=== PATIENT | male | born 1970 | race Caucasian/White ===

== ENCOUNTER 2017-02-13 09:18 | Emergency (ER) | payer OTHER ==
[2017-02-13 09:26] VITALS: BP 156/100; PULSE 88; TEMP 98; BMI 29.7
[2017-02-13] MEDS ORDERED: IBUPROFEN 600 MG TABLET (FP) PO ONE (10:04)
--- NOTE | 2017-02-13 10:04 | PDOC ---
History of Present Illness - General Chief Complaint: Burn Stated Complaint: RT HAND BURN Time Seen by Provider: 02/13/17 09:37 History Source: Patient Exam Limitations: No Limitations - History of Present Illness Initial Comments: 02/13/17 10:23 Patient is a 46-year-old male R hand dominant with no past medical history who presents to the emergency department today after burning his right hand on a deep fryer at work. He works at [employer]. He states that he has kay on the back of his fifth, fourth, and third fingers after touching the back of a deep fryer. He does not believe he got oil on his hand. He states that the pain is a 8 out of 10. He was given a bucket with water at triage which is helping his pain. He has not taken any pain medication. Pt. states he last had a tetanus shot last year. Past History - Past Medical History Allergies/Adverse Reactions: Allergies Allergy/AdvReac Type Severity Reaction Status Date / Time No Known Allergies Allergy Verified 02/13/17 09:23 Home Medications: Ambulatory Orders Methadone [Dolophine -] 90 mg PO DAILY 09/09/13 Amoxicillin/Potassium Clav [Augmentin 875-125 Tablet] 1 each PO BID #20 tablet 01/26/15 Fluticasone Prop 0.05% Nasal [Flonase -] 1 - 2 spray NS BID #1 spray.pump Other medical history: none - Psycho/Social/Smoking Cessation Hx Anxiety: No Suicidal Ideation: No Smoking History: Current every day smoker Have you smoked in the past 12 months: Yes Number of Cigarettes Smoked Daily: 5 Information on smoking cessation initiated: Yes 'Breaking Loose' booklet given: 02/13/17 Hx Alcohol Use: No Drug/Substance Use Hx: No Substance Use Type: None, Prescribed Hx Substance Use Treatment: Yes (4 years ago) Review of Systems - Review of Systems Able to Perform ROS?: Yes Is the patient limited Hebrew proficient: No Constitutional: No: Chills, Fever, Malaise, Weakness Integumentary: Yes: Erythema, Other (burn to R 5th, 4th, 3rd fingers) Neurological: Yes: Tingling. No: Numbness, Paresthesia, Weakness All Other Systems: Reviewed and Negative *Physical Exam - Vital Signs Last Vital Signs Temp Pulse Resp BP Pulse Ox 98.0 F 88 18 156/100 100 02/13/17 09:23 02/13/17 09:23 02/13/17 09:23 02/13/17 09:23 02/13/17 09:23 - Physical Exam General Appearance: Yes: Nourished, Appropriately Dressed, Mild Distress (c/o pain from the hand) Musculoskeletal: negative: Decreased Range of Motion Extremity: positive: Normal Capillary Refill, Normal Range of Motion, Tender ( TTP over burned areas), Other (Radial pulses intact 2+ b/l, neurovascualry intact) Integumentary: positive: Warm, Other (2nd degree partial thickness kay over ventral 5th, 4th, and 3rd fingers. Blisters are clean and intact over the burned area. 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 Blisters are clean and intact. We will continue to let him cool the hands in water. Dressing applied with antibiotic ointment. Given Motrin as needed for pain. We will discharge home at this time and instructed to follow up with his primary care doctor tomorrow. Patient not given any narcotics as he is on methadone. Explained that the kay will heal on their own and he should not pop the blisters as they are protecting the skin underneath. He is comfortable with this discharge plan. Patient understands all discharge instructions and all questions were answered at this time. *DC/Admit/Observation/Transfer Diagnosis at time of Disposition: 2Nd deg burn hand Qualifiers: Encounter type: initial encounter Burn of hand location: multiple fingers excluding thumb Laterality: right Qualified Code(s): T23.231A - Burn of second degree of multiple right fingers (nail), not including thumb, initial encounter - Discharge Dispostion Disposition: HOME Condition at time of disposition: Good Admit: No - Referrals Referrals: Peggy Anand MD [Primary Care Provider] - 2 Days - Patient Instructions Printed Discharge Instructions: How to Take Care of a Burn, DI for Kay Additional Instructions: You burned your hand. The wounds are clean and with closed blisters. Do not pop the blisters, as they are protecting the skin underneath. They may break on their own. You may place your hand in cool water for relief. You may take Ibuprofen as needed for pain. You may take 800mg every 8 hours. Keep the area covered with antibiotic ointment, and wrap your fingers with non stick/non- adherent dressing and tape. Follow up with your primary care doctor within 48 hours to monitor how the fingers are healing. Return to the ED if the pain becomes worse even with medication, you develop fevers, chills, numbness, tingling, or if there are any changes in your symptoms. - Post Discharge Activity Work/School Note: Back to Work
[2017-02-13] MEDS ORDERED: SILVER SULFADIAZINE 1% TOP CREAM 50 GM JAR TP ONE (10:05)
[2017-02-13] MEDS ORDERED: IBUPROFEN 400 MG TABLET (FP) PO ONE (10:10)
[2017-02-13] MEDS ORDERED: BACITRACIN 15 GM TUBE TOPICAL OINTMENT ONE (10:13)
[2017-02-13] MEDS ORDERED: BACITRACIN 15 GM TUBE TOPICAL OINTMENT TP ONE (10:13)
== END 2017-02-13 10:23 | disposition home or self-care (01) ==
LOC: JERFT 09:18
PROC: 2W2FX4Z Dressing of Left Hand using Bandage (ICD-10-PCS; principal; 2017-02-13)
DX: T23.231A Burn of second degree of multiple right fingers (nail), not including thumb, initial encounter (principal); X15.8XXA Contact with other hot household appliances, initial encounter; Y93.G3 Activity, cooking and baking; Y92.511 Restaurant or cafe as the place of occurrence of the external cause; Y99.0 Civilian activity done for income or pay
CPT/HCPCS: 99281-25

== ENCOUNTER 2017-06-18 16:43 | Emergency (ER) | payer OTHER ==
[2017-06-18 16:47] VITALS: BP 141/85; PULSE 90; TEMP 97.8; BMI 29.7
[2017-06-18] MEDS ORDERED: IBUPROFEN 600 MG TABLET (FP) PO ONE ×2 (16:48→17:21)
--- NOTE | 2017-06-18 16:48 | PDOC ---
Rapid Medical Evaluation Chief Complaint: Injury Time Seen by Provider: 06/18/17 16:44 Medical Evaluation: Allergies Allergy/AdvReac Type Severity Reaction Status Date / Time No Known Allergies Allergy Verified 06/18/17 16:45 06/18/17 16:46 I have performed a brief in-person evaluation of this patient. The Patient presents with a chief complaint of pain to left knee x 2 days Patient states hit knee on a fryer at work. Complaining of pain with weight bearing since then. Has knee brace in place Pertinent physical exam findings are: NAD unlabored breathing non tender with palpation over patella limping I have ordered the following: xray, analgesia The patient will proceed to the ED for further evaluation.
--- NOTE | 2017-06-18 18:00 | PDOC ---
History of Present Illness - General Chief Complaint: Injury Stated Complaint: LT KNEE INJURY Time Seen by Provider: 06/18/17 16:44 History Source: Patient Exam Limitations: No Limitations - History of Present Illness Initial Comments: 06/18/17 17:59 47 yr male injured left knee last week after banging into a piece of metal. Pt has continued pain to the inside of his left knee. Pt has no sign of trauma noted. Pt has been using a knee brace and biofreeze. Occurred: reports: last week Severity: Yes: mild Lower Extremity Pain Location: left: knee Method of Injury: Yes: direct blow Past History - Past Medical History Allergies/Adverse Reactions: Allergies Allergy/AdvReac Type Severity Reaction Status Date / Time No Known Allergies Allergy Verified 06/18/17 16:45 Home Medications: Ambulatory Orders NK [No Known Home Medication] 06/18/17 COPD: No Other medical history: none - Suicide/Smoking/Psychosocial Hx Smoking History: Current every day smoker Have you smoked in the past 12 months: Yes Number of Cigarettes Smoked Daily: 5 Information on smoking cessation initiated: Yes 'Breaking Loose' booklet given: 06/18/17 Hx Alcohol Use: No Drug/Substance Use Hx: No Substance Use Type: None, Prescribed Hx Substance Use Treatment: Yes (4 years ago) Review of Systems - Review of Systems Able to Perform ROS?: Yes Is the patient limited Uruguayan proficient: No Constitutional: No: Symptoms Reported HEENTM: No: Symptoms Reported Respiratory: No: Symptoms reported Cardiac (ROS): No: Symptoms Reported ABD/GI: No: Symptoms Reported : No: Symptoms Reported Musculoskeletal: Yes: See HPI Integumentary: No: Symptoms Reported Neurological: No: Symptoms reported *Physical Exam - Vital Signs Last Vital Signs Temp Pulse Resp BP Pulse Ox 97.8 F 90 18 141/85 100 06/18/17 16:45 06/18/17 16:45 06/18/17 16:45 06/18/17 16:45 06/18/17 16:45 - Physical Exam General Appearance: Yes: Nourished, Appropriately Dressed HEENT: positive: EOMI, SVEN Musculoskeletal: positive: Normal Inspection Extremity: positive: Normal Capillary Refill, Tender (medial left knee soft tissue, no bony tenderness, FROM of the knee nocalf pain or tenderness) Integumentary: positive: Normal Color, Dry, Warm Neurologic: positive: Fully Oriented, Alert, Normal Mood/Affect, Normal Response , Motor Strength 5/5 Procedures - Splinting Pre-Made Type: knee immobilizer ED Treatment Course - Medications Given in the ED: ED Medications Discontinued Medications Generic Name Dose Route Start Last Admin Trade Name Darin PRN Reason Stop Dose Admin Ibuprofen 600 mg 06/18/17 16:48 06/18/17 17:41 Motrin - PO 06/18/17 16:49 600 mg ONCE ONE Administration Medical Decision Making - Medical Decision Making 06/18/17 18:01 cc: left knee injury last week at work pt is ambulatory has FROM of the knee no swelling or deformity xray ordered from triage/RME. ibuprofen given in RME 06/18/17 18:05 xray is negative I have given the pt a knee immobilizer pt is requesting a cortisone injection, I have explained that an orthopedist needs to follow the pt and that they should be seen this week. pt and his family understand the plan of care, all questions asked and answered. *DC/Admit/Observation/Transfer Diagnosis at time of Disposition: Contusion, knee Qualifiers: Encounter type: initial encounter Laterality: left Qualified Code(s): S80.02XA - Contusion of left knee, initial encounter - Discharge Dispostion Disposition: HOME Condition at time of disposition: Good - Referrals Referrals: Nick Ramsey MD [Staff Physician] - Luis Fernando Ball MD [Staff Physician] - - Patient Instructions Additional Instructions: follow with the orthopedist this week call office or for follow up use the splint while awake remove to sleep and bathe take ibuprofen 600mg every 6hrs for pain apply frequent warm heat/warm compresses to the area of pain - Post Discharge Activity
== END 2017-06-18 18:08 | disposition home or self-care (01) ==
LOC: JERFT 16:43
DX: S80.02XA Contusion of left knee, initial encounter (principal); W22.8XXA Striking against or struck by other objects, initial encounter; Y93.89 Activity, other specified; Y92.511 Restaurant or cafe as the place of occurrence of the external cause; Y99.0 Civilian activity done for income or pay
CPT/HCPCS: 73562-TC-LT; 99281-25

== ENCOUNTER 2018-10-04 13:14 | Emergency (ER) | payer OTHER ==
[2018-10-04] MEDS ORDERED: ONDANSETRON 4 MG/2 ML VIAL IVPUSH ONE (13:21)
[2018-10-04] MEDS ORDERED: FAMOTIDINE 20 MG/50 ML IVPB 20 MG/50 ML MG IVPB ONE ×2 (13:21→14:23)
[2018-10-04 13:23] VITALS: BP 117/80; PULSE 76; TEMP 97.8; BMI 28.1
--- NOTE | 2018-10-04 13:23 | PDOC ---
Rapid Medical Evaluation Time Seen by Provider: 10/04/18 13:19 Medical Evaluation: Allergies Allergy/AdvReac Type Severity Reaction Status Date / Time No Known Allergies Allergy Verified 06/18/17 16:45 10/04/18 13:19 I have performed a brief in-person evaluation of this patient. The patient presents with a chief complaint of:JOHN and epigastric pain x5 days Pertinent physical exam findings:NAD I have ordered the following:belly labs, trponin, ekg and pepcid The patient will proceed to the ED for further evaluation. 10/04/18 13:22 Discharge Disposition - Diagnosis Epigastric abdominal pain - Referrals - Patient Instructions - Post Discharge Activity
[2018-10-04] MEDS ORDERED: ONDANSETRON 4 MG/2 ML VIAL ONE (14:23)
[2018-10-04 14:31] LABS: BASO % 0.7 % (0-2.0); HEMATOCRIT 43.7 % (35.4-49); HEMOGLOBIN 15.1 GM/dL (11.7-16.9); LYMPH % 27.1 % (8-40); MCH 30.7 pg (25.7-33.7); MCHC 34.5 g/dl (32.0-35.9); MEAN CELL VOLUME 88.9 fl (80-96); MEAN PLT VOLUME 8.4 fl (7.5-11.1); MONO % 8.6 % (3.8-10.2); NEUT % 62.6 % (42.8-82.8); PLATELET COUNT 178 K/MM3 (134-434); RBC 4.91 M/mm3 (4.00-5.60); RDW 14.5 % (11.9-15.9)
[2018-10-04 14:44] LABS: URINE APPEARANCE CLEAR; URINE BILIRUBIN NEGATIVE (<2.0 mg/dL); URINE COLOR DKYELLOW; URINE GLUCOSE (UA) NEGATIVE (NEGATIVE); URINE KETONE NEGATIVE (NEGATIVE); URINE LEUK ESTERASE NEGATIVE (NEGATIVE); URINE NITRITE NEGATIVE (NEGATIVE); URINE PROTEIN NEGATIVE (NEGATIVE); URINE UROBILINOGEN 4.0 E.U/dl mg/dL (0.2-1.0)
[2018-10-04 14:59] LABS: ALK PHOS 110 U/L (45-117); ANION GAP 6 MMOL/L (8-16); BILIRUBIN,TOTAL 0.5 mg/dL (0.2-1); BLOOD UREA NITROGEN 16 mg/dL (7-18); CALCIUM 9.2 mg/dL (8.5-10.1); CHLORIDE 106 mmol/L (98-107); CO2 26 mmol/L (21-32); CREATININE 0.9 mg/dL (0.55-1.3); GLUCOSE,RANDOM 90 mg/dL (74-106); LIPASE 153 U/L (73-393); POTASSIUM 4.3 mmol/L (3.5-5.1); SGOT/AST 31 U/L (15-37); SGPT/ALT 36 U/L (13-61); SODIUM 138 mmol/L (136-145); TOT PROT 8.7 g/dl (6.4-8.2)
--- NOTE | 2018-10-04 15:41 | PDOC ---
History of Present Illness - General Chief Complaint: Nausea/Vomiting Stated Complaint: BODY ACHES / CHEST PAIN Time Seen by Provider: 10/04/18 13:19 Past History - Travel Traveled outside of the country in the last 30 days: No Close contact w/someone who was outside of country & ill: No - Past Medical History Allergies/Adverse Reactions: Allergies Allergy/AdvReac Type Severity Reaction Status Date / Time No Known Allergies Allergy Verified 10/04/18 14:10 Home Medications: Ambulatory Orders Ondansetron [Zofran Odt -] 4 mg SL TID #10 od.tablet 10/04/18 Ranitidine [Zantac -] 150 mg PO BID #14 tablet 10/04/18 COPD: No - Suicide/Smoking/Psychosocial Hx Smoking History: Never smoked Have you smoked in the past 12 months: No Number of Cigarettes Smoked Daily: 5 Information on smoking cessation initiated: No 'Breaking Loose' booklet given: 06/18/17 Hx Alcohol Use: No Drug/Substance Use Hx: No Substance Use Type: None, Prescribed Hx Substance Use Treatment: Yes (4 years ago) Review of Systems - Review of Systems Able to Perform ROS?: Yes Comments:: 10/04/18 15:37 CONSTITUTIONAL: Absent: fever, chills, diaphoresis, generalized weakness, malaise, loss of appetite HEENT: Absent: rhinorrhea, nasal congestion, throat pain, throat swelling, difficulty swallowing, mouth swelling, ear pain, eye pain, visual Changes CARDIOVASCULAR: Absent: chest pain, loss of consciousness, palpitations, irregular heart rate, peripheral edema RESPIRATORY: Absent: cough, shortness of breath, dyspnea with exertion, orthopnea, wheezing, stridor, hemoptysis GASTROINTESTINAL: Absent: abdominal pain, abdominal distension, nausea, vomiting, diarrhea, constipation, melena, hematochezia GENITOURINARY: Absent: dysuria, frequency, urgency, hesitancy, hematuria, flank pain, genital pain MUSCULOSKELETAL: Absent: myalgia, arthralgia, joint swelling SKIN: Absent: rash, itching, pallor HEMATOLOGIC/IMMUNOLOGIC: Absent: easy bleeding, easy bruising, lymphadenopathy, frequent infections ENDOCRINE: Absent: unexplained weight gain, unexplained weight loss, heat intolerance, cold intolerance NEUROLOGIC: Absent: headache, focal weakness or paresthesias, dizziness, unsteady gait, seizure, mental status changes, bladder or bowel incontinence PSYCHIATRIC: Absent: anxiety, depression, suicidal or homicidal ideation, hallucinations. Is the patient limited Slovak proficient: No *Physical Exam - Vital Signs Last Vital Signs Temp Pulse Resp BP Pulse Ox 97.8 F 76 20 117/80 99 10/04/18 13:19 10/04/18 13:19 10/04/18 13:19 10/04/18 13:19 10/04/18 13:19 - Physical Exam Comments: 10/04/18 15:37 GENERAL: Well developed, well nourished. Awake and alert. No acute distress. HEENT: Normocephalic, atraumatic. PERRLA, EOMI. No conjunctival pallor. Sclera are non- icteric. Moist mucous membranes. Oropharynx is clear. NECK: Supple. Full ROM. No JVD. Carotid pulses 2+ and symmetric, without bruits. No thyromegaly. No lymphadenopathy. CARDIOVASCULAR: Regular rate and rhythm. No murmurs, rubs, or gallops. Distal pulses are 2+ and symmetric. PULMONARY: No evidence of respiratory distress. Lungs clear to auscultation bilaterally. No wheezing, rales or rhonchi. ABDOMINAL: Soft. Non-tender. Non-distended. No rebound or guarding. No organomegaly. Normoactive bowel sounds. MUSCULOSKELETAL Normal range of motion at all joints. No bony deformities or tenderness. No CVA tenderness. EXTREMITIES: No cyanosis. No clubbing. No edema. No calf tenderness. SKIN: Warm and dry. Normal capillary refill. No rashes. No jaundice. NEUROLOGICAL: Alert, awake, appropriate. Cranial nerves 2-12 intact. No deficits to light touch and temperature in face, upper extremities and lower extremities. No motor deficits in the in face, upper extremities and lower extremities. Normoreflexic in the upper and lower extremities. Normal speech. Toes are down- going bilaterally. Gait is normal without ataxia. PSYCHIATRIC: Cooperative. Good eye contact. Appropriate mood and affect. Moderate Sedation - Procedure Monitoring Vital Signs: Procedure Monitoring Vital Signs Temperature 97.8 F 10/04/18 13:19 Pulse Rate 76 10/04/18 13:19 Respiratory Rate 20 10/04/18 13:19 Blood Pressure 117/80 10/04/18 13:19 O2 Sat by Pulse Oximetry (%) 99 10/04/18 13:19 ED Treatment Course - LABORATORY CBC & Chemistry Diagram: 10/04/18 14:10 10/04/18 14:10 - ADDITIONAL ORDERS Additional order review: Laboratory Results 10/04/18 10/04/18 10/04/18 14:10 14:10 14:10 Sodium 138 Potassium 4.3 Chloride 106 Carbon Dioxide 26 Anion Gap 6 L BUN 16 Creatinine 0.9 Creat Clearance w eGFR > 60 Random Glucose 90 Calcium 9.2 Total Bilirubin 0.5 AST 31 ALT 36 Alkaline Phosphatase 110 Troponin I < 0.02 Total Protein 8.7 H Albumin 4.0 Lipase 153 Urine Color Dkyellow Urine Appearance Clear Urine pH 5.0 Ur Specific [place] 1.027 Urine Protein Negative Urine Glucose (UA) Negative Urine Ketones Negative Urine Blood Negative Urine Nitrite Negative Urine Bilirubin Negative Urine Urobilinogen 4.0 e.u/dl Ur Leukocyte Esterase Negative 10/04/18 14:10 RBC 4.91 MCV 88.9 MCHC 34.5 RDW 14.5 MPV 8.4 D Neutrophils % 62.6 D Lymphocytes % 27.1 D Monocytes % 8.6 Eosinophils % 1.0 Basophils % 0.7 - RADIOLOGY Radiology Studies Ordered: Category Date Time Status ABDOMEN US -LIMITED [US] Stat Ultrasound 10/04/18 14:39 Ordered - Medications Given in the ED: ED Medications Discontinued Medications Generic Name Dose Route Start Last Admin Trade Name Nikunjq PRN Reason Stop Dose Admin Famotidine/Sodium Chloride 20 mg in 50 mls @ 100 mls/hr 10/04/18 13:21 14:26 Pepcid 20 Mg Premixed Ivpb - IVPB 10/04/18 13:50 100 mls/hr ONCE ONE Administration Ondansetron HCl 4 mg 10/04/18 13:21 10/04/18 14:26 Zofran Injection IVPUSH 10/04/18 13:22 4 mg ONCE ONE Administration *DC/Admit/Observation/Transfer Diagnosis at time of Disposition: Epigastric abdominal pain Headache Qualifiers: Headache type: unspecified Headache chronicity pattern: acute headache Intractability: not intractable Qualified Code(s): R51 - Headache - Discharge Dispostion Disposition: HOME Condition at time of disposition: Stable Decision to Admit order: No - Referrals Referrals: Peggy Anand MD [Primary Care Provider] - Vineet Lake MD [Staff Physician] - Aquiles Beard DO [Staff Physician] - - Patient Instructions Printed Discharge Instructions: DI for Epigastric Pain, DI for Headache Additional Instructions: You were evaluated for your epigastric pain and headache today. Your lab work was normal including your cardiac enzymes and lipase Your EKG was normal. These labs checked for heart problems and pancreatitis. Please take the Zantac twice a day for one week. He may take Zofran as needed for nausea vomiting. Please follow up with both a machine striper and a neurologist. Referrals have been provided. Return to the ER for any new or worsening symptoms. - Post Discharge Activity Forms/Work/School Notes: Back to Work
--- NOTE | 2018-10-07 11:04 | EKG ---
Test Reason : Blood Pressure : / mmHG Vent. Rate : 074 BPM Atrial Rate : 074 BPM P-R Int : 160 ms QRS Dur : 098 ms QT Int : 416 ms P-R-T Axes : 029 000 035 degrees QTc Int : 461 ms NORMAL SINUS RHYTHM NORMAL ECG WHEN COMPARED WITH ECG OF 29-SEP-2014 11:26, NO SIGNIFICANT CHANGE WAS FOUND Confirmed by EMMA LUTZ MD ([id number]) on 10/07/2018 11:04:09 AM Referred By: Confirmed By:EMMA LUTZ MD
== END 2018-10-04 15:49 | disposition home or self-care (01) ==
LOC: JERFT 13:14 → EDBD 13:14 → JERFT 15:49
PROC: 3E033GC Introduction of Other Therapeutic Substance into Peripheral Vein, Percutaneous Approach (ICD-10-PCS; principal; 2018-10-04)
PROC: 3E033GC Introduction of Other Therapeutic Substance into Peripheral Vein, Percutaneous Approach (ICD-10-PCS; 2018-10-04)
DX: R10.13 Epigastric pain (principal); R51 Headache
CPT/HCPCS: 36415; 80053; 81003; 83690; 84484; 85025; 93005; 93010; 96365; 96375; 99282-25

== ENCOUNTER 2021-03-04 12:30 | Emergency (ER) | payer OTHER ==
[2021-03-04 13:05] VITALS: TEMP 97.6; BMI 28.8
[2021-03-04] MEDS ORDERED: KETOROLAC TROMETHAMINE 30 MG/1 ML VIAL IVPB ONE (14:08)
[2021-03-04] MEDS ORDERED: SODIUM CHLORIDE 0.9% 500 ML INFUS.BAG IV ONE (14:08)
[2021-03-04] MEDS ORDERED: METOCLOPRAMIDE HCL INJECTION 10 MG/2 ML VIAL IVPUSH ONE (14:09)
[2021-03-04] MEDS ORDERED: METOCLOPRAMIDE HCL INJECTION 10 MG/2 ML VIAL ONE (14:14)
[2021-03-04] MEDS ORDERED: KETOROLAC TROMETHAMINE 60 MG/2 ML VIAL ONE (14:14)
[2021-03-04 14:48] LABS: BASO % 0.6 % (0-2.0); EOS % 0.8 % (0-4.5); HEMATOCRIT 44.3 % (35.4-49); MCH 29.3 pg (25.7-33.7); MCHC 33.8 g/dl (32.0-35.9); MEAN CELL VOLUME 86.6 fl (80-96); MEAN PLT VOLUME 8.1 fl (7.5-11.1); MONO % 8.3 % (3.8-10.2); NEUT % 61.3 % (42.8-82.8); PLATELET COUNT 182 10^3/uL (134-434); RBC 5.11 M/mm3 (4.00-5.60); RDW 14.6 % (11.9-15.9); WHITE BLOOD COUNT 8.6 K/mm3 (4.0-10.0)
[2021-03-04 15:04] LABS: BLOOD UREA NITROGEN 10.9 mg/dL (7-18); CALCIUM 9.1 mg/dL (8.5-10.1)
[2021-03-04 15:05] LABS: ALBUMIN 4.1 g/dl (3.4-5.0)
[2021-03-04 15:08] LABS: CREATININE 0.8 mg/dL (0.55-1.3)
[2021-03-04 15:09] VITALS: BP 132/90; PULSE 70
[2021-03-04 15:09] LABS: BILIRUBIN,TOTAL 0.4 mg/dL (0.2-1); TOT PROT 8.5 g/dl (6.4-8.2)
== END 2021-03-04 15:20 | disposition home or self-care (01) ==
LOC: JER 12:30
PROC: 3E0333Z Introduction of Anti-inflammatory into Peripheral Vein, Percutaneous Approach (ICD-10-PCS; principal; 2021-03-04)
PROC: 3E033GC Introduction of Other Therapeutic Substance into Peripheral Vein, Percutaneous Approach (ICD-10-PCS; 2021-03-04)
DX: G44.89 Other headache syndrome (principal)
CPT/HCPCS: 36415; 80053; 85025; 99284-25

== ENCOUNTER 2021-05-21 12:20 | Emergency (ER) | payer OTHER ==
[2021-05-21 12:32] VITALS: BP 119/78; PULSE 87; TEMP 97.9; BMI 25.8
[2021-05-21] MEDS ORDERED: ACETAMINOPHEN 500 MG TABLET (FP) PO ONE (13:16)
[2021-05-21 14:47] LABS: ALBUMIN 3.7 g/dl (3.4-5.0); BASO % 0.6 % (0-2.0); BLOOD UREA NITROGEN 9.4 mg/dL (7-18); CALCIUM 9.1 mg/dL (8.5-10.1); EOS % 0.8 % (0-4.5); HEMATOCRIT 43.8 % (35.4-49); HEMOGLOBIN 14.7 GM/dL (11.7-16.9); LYMPH % 23.3 % (8-40); MCH 29.2 pg (25.7-33.7); MCHC 33.6 g/dl (32.0-35.9); MEAN CELL VOLUME 86.8 fl (80-96); MONO % 8.5 % (3.8-10.2); NEUT % 66.8 % (42.8-82.8); PLATELET COUNT 194 10^3/uL (134-434); RBC 5.04 M/mm3 (4.00-5.60); RDW 14.6 % (11.9-15.9); WHITE BLOOD COUNT 11.3 K/mm3 (4.0-10.0)
[2021-05-21 14:50] LABS: CREATININE 0.7 mg/dL (0.55-1.3)
[2021-05-21 14:52] LABS: BILIRUBIN,TOTAL 0.6 mg/dL (0.2-1)
[2021-05-21 14:53] LABS: TOT PROT 8.6 g/dl (6.4-8.2)
[2021-05-21] MEDS ORDERED: DALBAVANCIN HCL 1,500 MG in DEXTROSE 5%-WATER - 500 ML IVPB ONE (14:58)
[2021-05-21] MEDS ORDERED: DALBAVANCIN HCL 500 MG VIAL (RESTRICTED TO ID ONLY) IVPB ONE ×2 (15:31→15:36)
== END 2021-05-21 16:37 | disposition home or self-care (01) ==
LOC: JERFT 12:20 → JER 12:20 → JERFT 16:37
DX: L03.114 Cellulitis of left upper limb (principal)
CPT/HCPCS: 36415; 73070-TC-LT-FY; 73090-TC-LT-FY; 73130-TC-LT-FY; 80053; 85025; 87040; 99285-25; J0875